=== PATIENT | female | born 1960 | race Caucasian/White ===

== ENCOUNTER 2016-12-29 06:54 | Emergency (ER) | payer BC ==
[2016-12-29 06:08] LABS: BASOPHILS 0.2 %; BASOPHILS ABSOLUTE 0.02 10/3/uL (0.0-0.16); EOSINOPHILS 1.1 %; EOSINOPHILS ABSOLUTE 0.11 10/3/uL (0.0-0.53); HEMOGLOBIN 13.9 g/dL (12.0-16.0); IMMATURE GRANULOCYTES 0.2 %; IMMATURE GRANULOCYTES ABSOLUTE 0.02 10/3/uL (0.0-0.11); LYMPHOCYTES 22.9 %; LYMPHOCYTES ABSOLUTE 2.23 10/3/uL (0.67-4.30); MEAN CORPUS HGB CONC 33.1 g/dL (32.0-36.0); MEAN CORPUSCULAR HEMOGLOB 27.4 pg (26.0-34.0); MEAN CORPUSCULAR VOLUME 82.8 fL (80-100); MEAN PLATELET VOLUME 11.1 fL (9.2-13.0); MONOCYTES 8.4 %; MONOCYTES ABSOLUTE 0.82 10/3/uL (0.21-1.20); NEUTROPHILS 67.2 %; NEUTROPHILS ABSOLUTE 6.52 10/3/uL (2.02-8.40); PLATELET COUNT 179 10/3/uL (150-400); RBC DISTRIBUTION WIDTH 14.7 % (12.0-16.0); RED CELL COUNT 5.07 10/6/uL (4.0-5.6); WHITE BLOOD CELLS 9.7 10/3/uL (4.5-10.5)
[2016-12-29 06:09] LABS: MANUAL DIFF NO %
[2016-12-29 06:14] LABS: INTERNATIONAL NORMAL RATI 1.5 UNITS (-); PROTIME (NOT ORD) 18.4 SEC (12.0-14.5)
[2016-12-29 06:15] LABS: PARTIAL THROMBO TIME 61.7 SEC (22.5-37.2)
[~2016-12-29 06:54] MED LIST: ADVAIR250 INH; ADVIL PO; ASA5GR PO; ESTRADIOL2 MG PO; FIBER GUMMY PO; PAXIL30 MG PO; PRADAXA150 MG PO; PRENATAL VIT PO; PROVHFA INH; RYTHMOL SR225 MG PO
[2016-12-29 07:04] LABS: BUN (BLOOD UREA NITROGEN) 27 MG/DL (6-23); CALCIUM, SERUM 9.3 MG/DL (8.5-10.4); CHEST PAIN PROFILE TAT 0 Hrs 19 Mins; CHLORIDE, SERUM 103 MMOL/L (96-112); CO2 (CARBON DIOXIDE) 26 MMOL/L (24-34); CREATININE 0.84 MG/DL (0.55-1.02); GFR AFRICAN AMERICAN 89 ML/MIN (>=60); GFR NON AFRICAN AMERICAN 77 ML/MIN (>=60); GLUCOSE, SERUM 102 MG/DL (60-99); POTASSIUM, SERUM 3.8 MMOL/L (3.5-5.3); SODIUM, SERUM 141 MMOL/L (135-148); TROPONIN I <0.02 NG/ML (<0.05)
[2017-04-09] MEDS ORDERED: ACET500CAP PO (16:08)
[2017-04-09] MEDS ORDERED: HALF81 PO (16:09)
[2017-04-09] MEDS ORDERED: PROAIR HFA INH (16:09)
[2017-04-09] MEDS ORDERED: CARDCD240 PO (16:10)
[2017-04-09] MEDS ORDERED: PRADAXA150 MG PO (16:10)
[2017-04-09] MEDS ORDERED: ESTRADIOL2 MG PO (16:10)
[2017-04-09] MEDS ORDERED: PAXIL30 MG PO (16:12)
[2017-04-09] MEDS ORDERED: RYTHMOL SR225 MG PO (16:13)
[2017-04-09] MEDS ORDERED: LOP25 PO (16:13)
== END 2016-12-29 07:48 | disposition home or self-care (01) ==
LOC: ER 06:54
PROVIDERS: Specialist
DX: R00.2 Palpitations (principal); I48.92 Unspecified atrial flutter; Z90.710 Acquired absence of both cervix and uterus; Z88.2 Allergy status to sulfonamides; Z79.899 Other long term (current) drug therapy
CPT/HCPCS: 71010; 80048; 83735; 84484; 85025; 85610; 85730; 93005; 99285

== ENCOUNTER 2017-02-20 05:33 | Day surgery (SDC) | payer BC ==
[2017-02-17 14:56] LABS: HEMOGLOBIN 11.8 g/dL (12.0-16.0)
[2017-02-17 14:58] LABS: HEMATOCRIT 36.3 % (36.0-48.0)
[2017-02-17 15:28] LABS: CALCIUM, SERUM 8.8 MG/DL (8.5-10.4); CHLORIDE, SERUM 107 MMOL/L (96-112); CO2 (CARBON DIOXIDE) 27 MMOL/L (24-34); CREATININE 0.93 MG/DL (0.55-1.02); GFR AFRICAN AMERICAN 79 ML/MIN (>=60); GFR NON AFRICAN AMERICAN 68 ML/MIN (>=60); GLUCOSE, SERUM 106 MG/DL (60-99); SODIUM, SERUM 142 MMOL/L (135-148)
[2017-02-17 15:29] LABS: BUN (BLOOD UREA NITROGEN) 17 MG/DL (6-23)
--- NOTE | ~2017-02-20 | OP ---
Record Of Operation [facility] [address] [place]. [address] NAME: NUNO CONDE : 56 [place]US : [place] [facility] [place] PAT#: [id number] AGE: 56 ADM/REG DATE : 02/20/17 MR#: [id number] REPORT SERV DATE: 02/20/17 DICTATED BY: JAZMÍN MEJIA DATE: 02/20/17 REPORT STATUS : Draft TRANSCRIBED BY: MODL DATE: 02/20/17 DATE OF PROCEDURE: 02/20/2017 PREOPERATIVE DIAGNOSIS: Right knee medial meniscal tear. 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 PROCEDURE PERFORMED: Right knee arthroscopy, with partial medial and lateral meniscectomy, synovectomy, debriding chondroplasty, medial femoral condyle, and assorted necessary areas. SURGEON: Jazmín Mejia M.D. FRAME AND SCRAP CRUSHER: Peggy Romano. ANESTHESIA: General. PROCEDURE IN DETAIL: The patient was clearly identified, and after obtaining informed consent, she was brought to the operating room at [facility], where she was induced under general anesthesia, as her right lower extremity prepped and draped in usual manner. This concluded, after appropriate time-out procedure was performed. Tourniquet was elevated to 350 mmHg and successfully tested. 30 mL of saline were instilled within the joint and anteromedial and anterolateral portals were performed. Arthroscopy begins revealing impinging synovitis which was debrided through the case. Patellofemoral tracking was excellent. There was some mild chondromalacia grade 2 minus, but just fraying nothing that requires any specific treatment. The gutters were clear. There are no loose bodies. ACL and PCL were intact. The medial compartment reveals a complex posterior meniscal tear which was treated with a combination of hand instruments, electric shaver to good stable tissue. There was chondromalacia noted as well with flaking of cartilage. This was all carefully debrided superficially with good cartilage remaining. The lateral compartment reveals a complex lateral radial tears, these were all debrided, as well as some slight areas of chondromalacia which were trimmed and this concluded, the area was inspected, realizing no further care was necessary. Copious irrigation was performed through the outflow cannula, at which point, the knee was then carefully drained. The portals were closed. Ropivacaine and morphine were instilled in the joint at which point, the leg was carefully cleansed and dressed. The patient was allowed to awaken and was transferred to the recovery room in stable condition having tolerated the procedure well. ESTIMATED BLOOD LOSS: 5 mL. FLUIDS: 1100 mL. TOURNIQUET TIME: Approximately 30 minutes. PATHOLOGY: Sent specimen. Record Of Operation [address] [address] NAME: NUNO CONDE : 56 STATUS : [place] [facility] [place] PAT#: [id number] AGE: 56 ADM/REG DATE : 02/20/17 MR#: [id number] REPORT SERV DATE: 02/20/17 DICTATED BY: JAZMÍN MEJIA DATE: 02/20/17 REPORT STATUS : Draft TRANSCRIBED BY: ANITRA DATE: 02/20/17 MICROBIOLOGY: None. COMPLICATIONS: None. SPONGE AND NEEDLE COUNTS: Reportedly correct. ANTIBIOTICS: Administered appropriately preoperatively and ordered to be discontinued at the conclusion of the case. KOURTNEY/ANITRA Jazmín Mejia M.D. / [phone] CC: Leticia Edmonds M.D.
[2017-02-20 06:10] LABS: ASCORBIC ACID (UR NOT ORDER) NEG (NEG); BILIRUBIN, URINE NEGATIVE (NEG); KETONE, URINE NEGATIVE (NEG); LEUKOCYTE ESTERASE(NOT OR TRACE (NEG); WBC (NOT ORDERED) (RFLEX) < 1 (0-5)
[2017-04-09] MEDS ORDERED: ACET500CAP PO (16:08)
[2017-04-09] MEDS ORDERED: HALF81 PO (16:09)
[2017-04-09] MEDS ORDERED: PROAIR HFA INH (16:09)
[2017-04-09] MEDS ORDERED: CARDCD240 PO (16:10)
[2017-04-09] MEDS ORDERED: ESTRADIOL2 MG PO (16:10)
[2017-04-09] MEDS ORDERED: PRADAXA150 MG PO (16:10)
[2017-04-09] MEDS ORDERED: PAXIL30 MG PO (16:12)
[2017-04-09] MEDS ORDERED: LOP25 PO (16:13)
[2017-04-09] MEDS ORDERED: RYTHMOL SR225 MG PO (16:13)
== END 2017-02-20 14:42 | disposition home or self-care (01) ==
LOC: SDC 05:33
PROVIDERS: Orthopaedic Surgery
PROC: 0SBC4ZZ Excision of Right Knee Joint, Percutaneous Endoscopic Approach (ICD-10-PCS; 2017-02-20)
PROC: 0MQN4ZZ Repair Right Knee Bursa and Ligament, Percutaneous Endoscopic Approach (ICD-10-PCS; 2017-02-20)
PROC: 0SBC4ZZ Excision of Right Knee Joint, Percutaneous Endoscopic Approach (ICD-10-PCS; principal; 2017-02-20 06:45)
DX: S83.241A Other tear of medial meniscus, current injury, right knee, initial encounter (principal); S83.281A Other tear of lateral meniscus, current injury, right knee, initial encounter; F32.9 Major depressive disorder, single episode, unspecified; M94.261 Chondromalacia, right knee; J45.909 Unspecified asthma, uncomplicated; Z98.890 Other specified postprocedural states; Z90.49 Acquired absence of other specified parts of digestive tract; Z90.710 Acquired absence of both cervix and uterus; Z88.2 Allergy status to sulfonamides; Z79.899 Other long term (current) drug therapy; Z79.51 Long term (current) use of inhaled steroids
CPT/HCPCS: 80048; 81001; 85014; 85018; 88304; 93005; A9270-GY; J0690; J1170; J2250; J2274; J2405; J2550; J2795; J3010

== ENCOUNTER 2017-04-04 18:33 | Inpatient (IN) | payer BC ==
--- NOTE | ~2017-04-04 | DS ---
Discharge Summary [facility] [address] [place]. [address] NAME: NUNO CONDE : 56 STATUS : DIS IN PAT#: [id number] AGE: 56 ADM/REG DATE : 04/04/17 MR#: [id number] REPORT SERV DATE: 04/19/17 DICTATED BY: KATHY HOFFMANN DATE: 04/18/17 REPORT STATUS : Draft TRANSCRIBED BY: ANITRA DATE: 04/18/17 Data Collection from hospitalization DISCHARGE DIAGNOSES: 1. Atrial fibrillation with rapid ventricular response. 2. Sleep apnea. 3. Depression. CONSULTATIONS: None. PROCEDURES PERFORMED: None. MEDICATIONS: Tylenol 1000 mg three times a day as needed, ProAir two puffs via inhaler three times a day as needed, aspirin 81 mg daily, Pradaxa 150 mg twice a day, Cardizem CD 240 mg daily, estradiol 2 mg at bedtime, Paxil 30 mg at bedtime, and Rythmol SR 225 mg twice a day. She was instructed not to continue metoprolol. CONDITION AT DISCHARGE: Stable. DISPOSITION: The patient was discharged home on a low-sodium, low-cholesterol, cardiac diet with activities as instructed. She would follow up with Dr. Domenic Patrick on 04/16/2017. HOSPITAL COURSE: This is a 56-year-old female who has paroxysmal atrial fibrillation with rapid ventricular response. The patient had a controlled right on IV Cardizem. The Cardizem was continued as well as Pradaxa. Oral Cardizem was going to begin the following day. IV Cardizem was being weaned. The patient had been placed on a cardiac diet. On 04/07/2017, the patient was unwilling to stay for any further testing. She wanted to go home. She was alert and cooperative. She had no focal deficits. She was in atrial fibrillation with rapid ventricular response - now controlled. Discharge instructions were given. Due to her improved and stable condition, she was discharged home with the above- stated instructions. Information collected by: Gillian Angelo I submit the above information as my discharge summary. CATRACHITA/ANITRA Leticia Aguila#: [id number] / [id number] CC: Leticia Horowitz M.D.
[2017-04-04 17:09] LABS: BASOPHILS 0.2 %; BASOPHILS ABSOLUTE 0.02 10/3/uL (0.0-0.16); EOSINOPHILS 1.6 %; EOSINOPHILS ABSOLUTE 0.14 10/3/uL (0.0-0.53); ER CBC TAT 0 Hrs 12 Mins; HEMOGLOBIN 13.3 g/dL (12.0-16.0); IMMATURE GRANULOCYTES 0.2 %; IMMATURE GRANULOCYTES ABSOLUTE 0.02 10/3/uL (0.0-0.11); LYMPHOCYTES 28.8 %; LYMPHOCYTES ABSOLUTE 2.58 10/3/uL (0.67-4.30); MEAN CORPUS HGB CONC 32.9 g/dL (32.0-36.0); MEAN CORPUSCULAR HEMOGLOB 27.5 pg (26.0-34.0); MEAN CORPUSCULAR VOLUME 83.5 fL (80-100); MONOCYTES 9.1 %; MONOCYTES ABSOLUTE 0.82 10/3/uL (0.21-1.20); NEUTROPHILS 60.1 %; NEUTROPHILS ABSOLUTE 5.39 10/3/uL (2.02-8.40); PLATELET COUNT 202 10/3/uL (150-400); RBC DISTRIBUTION WIDTH 14.1 % (12.0-16.0); RED CELL COUNT 4.84 10/6/uL (4.0-5.6)
[2017-04-04 17:11] LABS: HEMATOCRIT 40.4 % (36.0-48.0); MANUAL DIFF NO %
[2017-04-04 17:15] LABS: CALCIUM, SERUM 8.8 MG/DL (8.5-10.4); CHEST PAIN PROFILE TAT 0 Hrs 18 Mins; CHLORIDE, SERUM 107 MMOL/L (96-112); CO2 (CARBON DIOXIDE) 24 MMOL/L (24-34); GFR AFRICAN AMERICAN 82 ML/MIN (>=60); GFR NON AFRICAN AMERICAN 70 ML/MIN (>=60); GLUCOSE, SERUM 102 MG/DL (60-99); POTASSIUM, SERUM 3.9 MMOL/L (3.5-5.3); SODIUM, SERUM 139 MMOL/L (135-148); TROPONIN I <0.02 NG/ML (<0.05)
[2017-04-04 17:16] LABS: BUN (BLOOD UREA NITROGEN) 21 MG/DL (6-23)
[2017-04-04 17:21] LABS: INTERNATIONAL NORMAL RATI 1.5 UNITS (-); PROTIME (NOT ORD) 17.6 SEC (12.0-14.5)
[2017-04-04 17:22] LABS: PARTIAL THROMBO TIME 61.5 SEC (22.5-37.2)
[2017-04-04] MEDS ORDERED: ESTRADIOL2 MG PO (18:57)
[2017-04-04] MEDS ORDERED: PRADAXA150 MG PO (18:57)
[2017-04-04] MEDS ORDERED: LOP25 PO (18:58)
[2017-04-04] MEDS ORDERED: RYTHMOL SR225 MG PO (18:58)
[2017-04-04] MEDS ORDERED: PAXIL30 MG PO (18:59)
[2017-04-04] MEDS ORDERED: PROAIR HFA INH (18:59)
[2017-04-04] MEDS ORDERED: ACET500CAP PO (19:00)
[2017-04-07 04:24] LABS: BASOPHILS 0.3 %; BASOPHILS ABSOLUTE 0.02 10/3/uL (0.0-0.16); EOSINOPHILS 1.1 %; EOSINOPHILS ABSOLUTE 0.08 10/3/uL (0.0-0.53); HEMOGLOBIN 12.6 g/dL (12.0-16.0); IMMATURE GRANULOCYTES 0.1 %; IMMATURE GRANULOCYTES ABSOLUTE 0.01 10/3/uL (0.0-0.11); LYMPHOCYTES 29.8 %; LYMPHOCYTES ABSOLUTE 2.26 10/3/uL (0.67-4.30); MEAN CORPUS HGB CONC 33.2 g/dL (32.0-36.0); MEAN CORPUSCULAR HEMOGLOB 27.9 pg (26.0-34.0); MEAN CORPUSCULAR VOLUME 84.3 fL (80-100); MEAN PLATELET VOLUME 10.7 fL (9.2-13.0); MONOCYTES 9.5 %; MONOCYTES ABSOLUTE 0.72 10/3/uL (0.21-1.20); NEUTROPHILS 59.2 %; PLATELET COUNT 175 10/3/uL (150-400); RED CELL COUNT 4.51 10/6/uL (4.0-5.6); WHITE BLOOD CELLS 7.6 10/3/uL (4.5-10.5)
[2017-04-07 04:25] LABS: MANUAL DIFF NO %
[2017-04-07 04:36] LABS: INTERNATIONAL NORMAL RATI 1.8 UNITS (-)
[2017-04-07 04:37] LABS: PROTIME (NOT ORD) 20.7 SEC (12.0-14.5)
[2017-04-07 04:46] LABS: BUN (BLOOD UREA NITROGEN) 18 MG/DL (6-23); CALCIUM, SERUM 8.9 MG/DL (8.5-10.4); CHLORIDE, SERUM 105 MMOL/L (96-112); CO2 (CARBON DIOXIDE) 23 MMOL/L (24-34); CREATININE 0.97 MG/DL (0.55-1.02); GFR AFRICAN AMERICAN 75 ML/MIN (>=60); GFR NON AFRICAN AMERICAN 64 ML/MIN (>=60); GLUCOSE, SERUM 99 MG/DL (60-99); POTASSIUM, SERUM 3.7 MMOL/L (3.5-5.3); SODIUM, SERUM 137 MMOL/L (135-148)
[2017-04-07] MEDS ORDERED: HALF81 PO (09:11)
[2017-04-07] MEDS ORDERED: CARDCD240 PO (09:11)
[2017-04-09] MEDS ORDERED: ACET500CAP PO (16:08)
[2017-04-09] MEDS ORDERED: PROAIR HFA INH (16:09)
[2017-04-09] MEDS ORDERED: HALF81 PO (16:09)
[2017-04-09] MEDS ORDERED: ESTRADIOL2 MG PO (16:10)
[2017-04-09] MEDS ORDERED: CARDCD240 PO (16:10)
[2017-04-09] MEDS ORDERED: PRADAXA150 MG PO (16:10)
[2017-04-09] MEDS ORDERED: PAXIL30 MG PO (16:12)
[2017-04-09] MEDS ORDERED: LOP25 PO (16:13)
[2017-04-09] MEDS ORDERED: RYTHMOL SR225 MG PO (16:13)
== END 2017-04-07 10:40 | disposition home or self-care (01) | DRG 310 ==
LOC: ER 18:33 → CDU1 18:36
PROVIDERS: Internal Medicine Clinical Cardiac Electrophysiology; Specialist
DX: I48.0 Paroxysmal atrial fibrillation (principal); Z88.2 Allergy status to sulfonamides
CPT/HCPCS: 80048; 83735; 84484; 85025; 85610; 85730; 93005; 96374; 99291; A9270-GY